=== PATIENT | male | born 1940 | race Caucasian/White ===

== ENCOUNTER 2019-04-02 06:00 | Day surgery (SDC) | payer MEDICARE, OTHER ==
[~2019-04-02] VITALS: Ht 182.9 cm; Wt 113.0 kg
[~2019-04-02 06:00] MED LIST: ALBUTEROL 90MCG; AMLO10 PO; AMLO5 PO; Advil200 M1 PO; BUDE6HFA INH; CYCL10; FLUSAL1005 IH; HCTZ PO; IBUP400; LOSA25 PO; LOSARTAN PO; OMEP20ER PO; Prilosec Otc20 MG PO
--- NOTE | 2019-04-02 06:40 | NUR ---
PT ADMITTED TO [facility]. AGREES WITH PLANNED SURGERY. LUNG SOUNDS CLEAR.
--- NOTE | 2019-04-02 06:48 | NUR ---
NOZIN TO NARES BILATERALLY.
--- NOTE | 2019-04-02 07:15 | NUR ---
UP TO BATHROOM TO VOID.
--- NOTE | 2019-04-02 17:02 | NUR ---
SHIFT SUMMARY PT A&OX4, VSS, S/P R TKA, SURGICAL DRESSING/MARYLOU WRAP REINFORCED. PAIN MANAGED PER EMAR. JOY PO, DENIES N&V. AMB SBA W/FWW TO BRP, VOIDING WELL. UP TO CHAIR SINCE PHYSICAL THERAPY EVAL'D. EJ AT BEDSIDE. WCTM & TX PER EMAR UNTIL REPORT GIVEN TO ONCOMING RN.
--- NOTE | 2019-04-02 20:00 | NUR ---
REINFIRCEMENT MADE TO 2 SPOTS THAT HAVE BLED THROUGH. GOOD DISTAL PULSES NOTED. CAP REFILL <3 SEC. DENIES FURTHER NEEDS AT THIS TIME. SAFETY MEASUERS IN PLACE. WILL CONTINUE TO MONITOR.
--- NOTE | 2019-04-03 04:12 | NUR ---
OFF.RN NOTIFIED AND DRESSING CHECKED FOR BLOOD.
[2019-04-03 05:13] LABS: BASOPHILS ABSOLUTE AUTO 0.01 K/mm3 (0.00-0.23); BASOPHILS PERCENT AUTO 0 % (0-2); EOSINOPHILS PERCENT AUTO 0 % (0-6); Hematocrit 37.8 % (37.0-53.0); Hemoglobin 12.1 g/dL (13.5-17.5); IMMATURE GRAN ABSOLUTE AUTO 0.03 K/mm3 (0.00-0.10); IMMATURE GRAN PERCENT AUTO 0 % (0-1); LYMPHOCYTES ABSOLUTE AUTO 0.35 K/mm3 (0.84-5.20); LYMPHOCYTES PERCENT AUTO 4 % (21-46); MONOCYTES ABSOLUTE AUTO 0.57 K/mm3 (0.16-1.47); MONOCYTES PERCENT AUTO 6 % (4-13); Mean Corpuscular HGB 33.2 pg (26.0-34.0); Mean Corpuscular Volume 104 fL (80-100); Mean Platelet Volume 9.2 fL (9.1-12.4); NEUTROPHILS ABSOLUTE AUTO 8.21 K/mm3 (1.96-9.15); NEUTROPHILS PERCENT AUTO 90 % (41-73); Platelet Count 154 K/mm3 (150-400); RDW Coefficient Variation 12.5 % (11.7-14.2); RDW Standard Deviation 47.5 fL (35.1-46.3); Red Blood Cell Count 3.65 M/mm3 (4.30-5.90); White Blood Cell Count 9.17 K/mm3 (4.00-11.30)
[2019-04-03 05:39] LABS: Magnesium, Blood 2.2 mg/dL (1.6-2.4)
[2019-04-03 05:40] LABS: Anion Gap 5 mmol/L (6-16); Blood Urea Nitrogen 16 mg/dL (8-24); Bun/Creatinine Ratio 18.4 (12.0-20.0); CO2, Blood 29 mmol/L (21-32); Calcium, Blood 8.6 mg/dL (8.5-10.1); Chloride, Blood 104 mmol/L (98-108); Creatinine, Blood 0.87 mg/dL (0.60-1.20); Glomerular Filtration Rate >60 (60-); Glucose, Blood 153 mg/dL (70-99); Potassium, Blood 4.7 mmol/L (3.5-5.5); Sodium, Blood 138 mmol/L (136-145)
--- NOTE | 2019-04-03 06:22 | NUR ---
SHIFT SUMMARY LYING IN CHAIR AT BEDSIDE. NO C/O PAIN OR DISCOMFORT, WAS MEDICATED PRN ONCE THIS SHIFT. NO FURTHER BLEEDING NOTED SINCE REINFORCING AT START OF SHIFT. DENIES FURTHER NEEDS OR WANTS AT THIS TIME. SAFETY MEAUSRES IN PLACE. WILL GIVE HAND OFF TO ONCOMING SHIFT USING SBAR.
[2019-04-03] MEDS ORDERED: ASPI325EC PO (09:55)
[2019-04-03] MEDS ORDERED: OXYC5 PO (09:57)
--- NOTE | 2019-04-03 10:43 | NUR ---
DISCHARGE SUMMARY PT A&OX4, VSS, LEFT FLOOR VIA WC WITH FIRE INVESTIGATION MANAGER TO GO HOME WITH EJ, WITH ALL PERSONAL POSSESSIONS INCLUDING DISCHARGE PACKET AND 4 AQUACEL DRESSINGS. DISCHARGE INSTRUCTIONS PROVIDED. PT REP UNDERSTANDING THOSE INSTRUCTIONS INCLUDING OUTPT PT, FU APPT WITH SURGEON IN 2 WKS, DRESSING CHANGES Q3-5 DAYS W/SOAPY WASH SHOWER, NO TUB BATHS/ZURI NAVARRETE & I.S. EDU&ENC. IV DC'D.
--- NOTE | 2019-04-07 09:29 | NUR ---
04/07/19 0929 Shannan Chun VERIFICATIONS: EDIT CHART.
== END 2019-04-03 10:36 | disposition home or self-care (01) ==
LOC: ORSCMMR 06:00 → ORD 07:30 → ORSCMMR 07:30 → SURS 11:51 → ORSCMMR 04-03 10:36
PROVIDERS: Orthopaedic Surgery
PROC: 8E0YXBZ Computer Assisted Procedure of Lower Extremity (ICD-10-PCS; principal; 2019-04-02 07:30)
PROC: 0SRC0J9 Replacement of Right Knee Joint with Synthetic Substitute, Cemented, Open Approach (ICD-10-PCS; principal; 2019-04-02 07:30)
DX: M17.11 Unilateral primary osteoarthritis, right knee (principal); I48.91 Unspecified atrial fibrillation; G47.33 Obstructive sleep apnea (adult) (pediatric); J44.9 Chronic obstructive pulmonary disease, unspecified; F17.210 Nicotine dependence, cigarettes, uncomplicated; Z79.899 Other long term (current) drug therapy; E66.9 Obesity, unspecified; Z68.33 Body mass index [BMI] 33.0-33.9, adult
CPT/HCPCS: 36415; 73560-RT; 80048; 83735; 85025; 88300; 94640; 94762; 97110; 97116; 97162; C1713; C1776; J0171; J0690; J0735; J1100; J1885; J2250; J2370; J2405; J2704; J2795; J3370; J7120

== ENCOUNTER 2023-08-07 19:41 | Emergency (ER) | payer MEDICARE, OTHER ==
[~2023-08-07] VITALS: Ht 182.9 cm; Wt 106.6 kg
[~2023-08-07 19:41] MED LIST changes: +ASPI325EC PO; +OXYC5 PO
[2023-08-07] MEDS ORDERED: MONT10T PO (19:58)
[2023-08-07] MEDS ORDERED: FOLI1 PO (19:58)
[2023-08-07] MEDS ORDERED: ALBU90OI INH (19:59)
[2023-08-07] MEDS ORDERED: CLIN1TS (19:59)
[2023-08-07] MEDS ORDERED: CYCL10 PO (19:59)
[2023-08-07] MEDS ORDERED: FINA5 PO (19:59)
[2023-08-07] MEDS ORDERED: TRAM50 PO (20:00)
[2023-08-07] MEDS ORDERED: ELIQUIS5 M2 PO (20:00)
[2023-08-07] MEDS ORDERED: METO25ER PO (20:01)
[2023-08-07] MEDS ORDERED: Crestor20 MG PO (20:01)
[2023-08-07] MEDS ORDERED: AMLO5 PO (20:02)
[2023-08-07] MEDS ORDERED: TAMS.4ER PO (20:02)
[2023-08-07] MEDS ORDERED: LACT PO (20:03)
[2023-08-07] MEDS ORDERED: LOSA25 PO (20:03)
[2023-08-07] MEDS ORDERED: ARTIFICIAL TEA1 EAC1 (20:03)
[2023-08-07] MEDS ORDERED: FLUTICASONE-SA1 EAC2 INH (20:04)
[2023-08-07 20:45] LABS: BASOPHILS ABSOLUTE AUTO 0.02 K/mm3 (0.00-0.23); BASOPHILS PERCENT AUTO 1 % (0-2); EOSINOPHILS ABSOLUTE AUTO 0.06 K/mm3 (0.00-0.68); EOSINOPHILS PERCENT AUTO 2 % (0-6); Hematocrit 37.1 % (37.0-53.0); Hemoglobin 12.7 g/dL (13.5-17.5); IMMATURE GRAN ABSOLUTE AUTO 0.04 K/mm3 (0.00-0.10); IMMATURE GRAN PERCENT AUTO 1 % (0-1); LYMPHOCYTES PERCENT AUTO 15 % (21-46); MONOCYTES ABSOLUTE AUTO 0.33 K/mm3 (0.16-1.47); MONOCYTES PERCENT AUTO 8 % (4-13); Mean Corpuscular HGB 35.9 pg (26.0-34.0); Mean Corpuscular HGB Conc 34.2 g/dL (31.5-36.5); Mean Corpuscular Volume 105 fL (80-100); NEUTROPHILS ABSOLUTE AUTO 3.07 K/mm3 (1.96-9.15); NEUTROPHILS PERCENT AUTO 74 % (41-73); Platelet Count 150 K/mm3 (150-400); RDW Coefficient Variation 12.7 % (11.7-14.2); Red Blood Cell Count 3.54 M/mm3 (4.30-5.90); White Blood Cell Count 4.12 K/mm3 (4.00-11.30)
[2023-08-07 20:58] LABS: Albumin, Blood 3.3 g/dL (3.4-5.0); Albumin/Globulin Ratio 1.2 (0.8-1.8); Bilirubin, Total 0.5 mg/dL (0.1-1.0); Bun/Creatinine Ratio 9.4 (12.0-20.0); Calcium, Blood 8.7 mg/dL (8.5-10.1); Creatinine, Blood 0.96 mg/dL (0.60-1.20); Globulin, Blood 2.7 g/dL (2.2-4.0)
[2023-08-07 22:00] VITALS: BP 105/67
== END 2023-08-07 22:26 | disposition home or self-care (01) ==
LOC: ER 19:41
PROVIDERS: Emergency Medicine
DX: R55 Syncope and collapse (principal); I45.2 Bifascicular block; I10 Essential (primary) hypertension; J44.9 Chronic obstructive pulmonary disease, unspecified; M19.90 Unspecified osteoarthritis, unspecified site; Z88.8 Allergy status to other drugs, medicaments and biological substances; W18.30XA Fall on same level, unspecified, initial encounter; Z79.899 Other long term (current) drug therapy; Z79.01 Long term (current) use of anticoagulants; Z79.51 Long term (current) use of inhaled steroids; Z88.1 Allergy status to other antibiotic agents
CPT/HCPCS: 80053; 83880; 84484; 85025; 93005; 93010; 99284-25

== ENCOUNTER → 2024-06-17 | Outpatient (CLI) | payer MEDICARE, OTHER ==
[~2024-06-17] MED LIST changes: +ALBU90OI INH; +ARTIFICIAL TEA1 EAC1; +CLIN1TS; +CYCL10 PO; +Crestor20 MG PO; +ELIQUIS5 M2 PO; +FINA5 PO; +FLUTICASONE-SA1 EAC2 INH; +FOLI1 PO; +LACT PO; +METO25ER PO; +MONT10T PO; +TAMS.4ER PO; +TRAM50 PO
== END | disposition home or self-care (01) ==
LOC: LAB 10:45 → LAB SHORT 10:45
DX: D17.39 Benign lipomatous neoplasm of skin and subcutaneous tissue of other sites (principal); L98.9 Disorder of the skin and subcutaneous tissue, unspecified
CPT/HCPCS: 88305